=== PATIENT | female | born 1985 | race Caucasian/White ===

== ENCOUNTER → 2022-07-08 | Outpatient (CLI) | payer OTHER ==
[~2022-07-08] MED LIST: AMOX250 PO; AMOX500 PO; Azithromycin500 MG PO; BIRTH CONTROL; CEPH250A PO; CIPR500 PO; CODACE30 PO; Crutch1 EACH MISC; IBUP800 PO; NAPR500 PO; RXCODACET PO
== END | disposition home or self-care (01) ==
LOC: LAB 18:05 → LAB SHORT 18:05
DX: S29.011A Strain of muscle and tendon of front wall of thorax, initial encounter (principal); R82.81 Pyuria
CPT/HCPCS: 87086

== ENCOUNTER 2022-08-18 17:34 | Inpatient (IN) | payer OTHER ==
[~2022-08-18] VITALS: Ht 165.1 cm; Wt 68.0 kg
[2022-08-18 19:03] LABS: BASOPHILS ABSOLUTE AUTO 0.03 K/mm3 (0.00-0.23); BASOPHILS PERCENT AUTO 0 % (0-2); EOSINOPHILS PERCENT AUTO 4 % (0-6); Hematocrit 41.6 % (33.0-51.0); Hemoglobin 14.5 g/dL (11.5-16.0); IMMATURE GRAN ABSOLUTE AUTO 0.01 K/mm3 (0.00-0.10); IMMATURE GRAN PERCENT AUTO 0 % (0-1); LYMPHOCYTES ABSOLUTE AUTO 2.14 K/mm3 (0.84-5.20); LYMPHOCYTES PERCENT AUTO 30 % (21-46); MONOCYTES ABSOLUTE AUTO 0.49 K/mm3 (0.16-1.47); MONOCYTES PERCENT AUTO 7 % (4-13); Mean Corpuscular HGB 30.4 pg (26.0-34.0); Mean Corpuscular HGB Conc 34.9 g/dL (31.5-36.5); Mean Corpuscular Volume 87 fL (80-100); Mean Platelet Volume 10.1 fL (9.1-12.4); NEUTROPHILS ABSOLUTE AUTO 4.12 K/mm3 (1.96-9.15); NEUTROPHILS PERCENT AUTO 58 % (41-73); Platelet Count 259 K/mm3 (150-400); RDW Coefficient Variation 12.8 % (11.7-14.2); RDW Standard Deviation 40.8 fL (35.1-46.3); Red Blood Cell Count 4.77 M/mm3 (3.80-5.20); White Blood Cell Count 7.09 K/mm3 (4.00-11.30)
[2022-08-18 19:26] LABS: Albumin, Blood 3.9 g/dL (3.4-5.0); Bilirubin, Total 0.5 mg/dL (0.1-1.0); Calcium, Blood 9.5 mg/dL (8.5-10.1); Creatinine, Blood 0.73 mg/dL (0.40-1.00); Globulin, Blood 3.9 g/dL (2.2-4.0); Potassium, Blood 3.9 mmol/L (3.5-5.5); Total Protein, Blood 7.8 g/dL (6.4-8.2)
[2022-08-19 03:52] LABS: BASOPHILS ABSOLUTE AUTO 0.02 K/mm3 (0.00-0.23); BASOPHILS PERCENT AUTO 0 % (0-2); EOSINOPHILS ABSOLUTE AUTO 0.29 K/mm3 (0.00-0.68); EOSINOPHILS PERCENT AUTO 4 % (0-6); Hematocrit 35.7 % (33.0-51.0); Hemoglobin 12.4 g/dL (11.5-16.0); IMMATURE GRAN ABSOLUTE AUTO 0.01 K/mm3 (0.00-0.10); IMMATURE GRAN PERCENT AUTO 0 % (0-1); LYMPHOCYTES ABSOLUTE AUTO 2.52 K/mm3 (0.84-5.20); LYMPHOCYTES PERCENT AUTO 31 % (21-46); MONOCYTES ABSOLUTE AUTO 0.64 K/mm3 (0.16-1.47); MONOCYTES PERCENT AUTO 8 % (4-13); Mean Corpuscular HGB 30.8 pg (26.0-34.0); Mean Corpuscular HGB Conc 34.7 g/dL (31.5-36.5); Mean Corpuscular Volume 89 fL (80-100); Mean Platelet Volume 10.2 fL (9.1-12.4); NEUTROPHILS ABSOLUTE AUTO 4.68 K/mm3 (1.96-9.15); NEUTROPHILS PERCENT AUTO 57 % (41-73); Platelet Count 208 K/mm3 (150-400); RDW Coefficient Variation 12.9 % (11.7-14.2); RDW Standard Deviation 42.2 fL (35.1-46.3); Red Blood Cell Count 4.03 M/mm3 (3.80-5.20); White Blood Cell Count 8.16 K/mm3 (4.00-11.30)
[2022-08-19 04:11] LABS: Albumin, Blood 3.1 g/dL (3.4-5.0); Albumin/Globulin Ratio 0.9 (0.8-1.8); Bun/Creatinine Ratio 10.4 (12.0-20.0); Calcium, Blood 8.9 mg/dL (8.5-10.1); Creatinine, Blood 0.77 mg/dL (0.40-1.00); Globulin, Blood 3.3 g/dL (2.2-4.0); Potassium, Blood 3.7 mmol/L (3.5-5.5); Total Protein, Blood 6.4 g/dL (6.4-8.2)
--- NOTE | 2022-08-19 05:08 | NUR ---
SHIFT SUMMARY ADMITTED FOR ACUTE CHOLECYSTITIS. AOX4. TALKATIVE & TANGETABLE SPEECH @TIMES, HOWEVER RESPONDS APPROPRIATE. DENIES N/V. ACTIVE BT. REPORTS 5/10 TENDERNESS & PAIN TO RUQ RAIDIATING TO R SIDE, STATES THIS PAIN LEVEL IS TOLERABLE COMPARED TO 10/10 PAIN LEVEL UPON ARRIVAL TO ER. HAS BEEN NPO SINCE MIDNIGHT, DID TOLERATE WATER W/O EMESIS PRIOR TO MIDNIGHT. PLAN FOR POSS SURGERY IN AM. @BEDSIDE T/O NIGHT SINCE PT REPORTED BEING SCARED TO SLEEP ALONE. CALL LIGHT IN REACH & PT ABLE TO MAKE NEEDS KNOWN.
--- NOTE | 2022-08-19 12:29 | NUR ---
PT'S RINGS X4 GIVEN TO . History, Chart, Medications and Allergies reviewed before start of procedure.Pre-Op teaching done. Pt verbalizes understanding.
--- NOTE | 2022-08-19 12:39 | NUR ---
BELLY BUTTON RING REMOVED AND GIVEN TO .
--- NOTE | 2022-08-19 12:44 | NUR ---
TONGUE RING REMOVED AND GAVE TO .
--- NOTE | 2022-08-19 13:27 | NUR ---
08/19/22 1327 Nancy Branch NO PREOP ANTIBIOTICS PER PATIENT IS ON SCHEDULED ANTIBIOTICS.
[2022-08-19] MEDS ORDERED: HYDR1TAB94 PO (15:19)
--- NOTE | 2022-08-19 15:44 | NUR ---
PT ARRIVED FROM PACU, A&OX4, ANSWERS QUESTIONS APPROPRIATELY, DENIES PAIN/NEED FOR MED AT THIS TIME. AT BEDSIDE. S/P LAP KELI, 3 INCISIONS, WOUND GLUE DRY/INTACT.
--- NOTE | 2022-08-19 17:00 | NUR ---
DISCHARGE SUMMARY PT A&OX4, VSS/RA, YANI PO, VOIDING WELL, AMB INDEPENDENTLY IN ROOM, DENIES PAIN/NEED FOR PAIN MEDS, IV DC'D. DC INS PROVIDED TO PT AND SPOUSE. PT REP UNDERSTANDING THOSE INSTRUCTIONS INCLUDING FU WITH SURGEON, PAIN MED AT [place], [place] TO SHOWER 08/20, WHEN TO CALL THE LEFT CAIO VIA WC WITH INSPECTOR BALL POINTS TO GO HOME WITH FATHER & DAUGHTER, WITH ALL PERSONAL POSSESSIONS INCLUDING DC PACKET.
== END 2022-08-19 17:30 | disposition home or self-care (01) | DRG 419 ==
LOC: ER 17:34 → SURS 20:53 → ER 21:20 → SURS 21:20
PROVIDERS: Student in an Organized Health Care Education/Training Program; Surgery; ADMIT Surgery
PROC: BF121ZZ Fluoroscopy of Gallbladder using Low Osmolar Contrast (ICD-10-PCS; 2022-08-19)
PROC: 0FT44ZZ Resection of Gallbladder, Percutaneous Endoscopic Approach (ICD-10-PCS; principal; 2022-08-19 12:30)
DX: K80.00 Calculus of gallbladder with acute cholecystitis without obstruction (principal); Z98.890 Other specified postprocedural states
CPT/HCPCS: 36415; 74177; 74300; 80053; 83690; 84703; 85025; 88304; 96374-59; 96375; 99285-25; C1729; J1100; J1885; J2250; J2270; J2405; J2543; J2704; J3010; J7120; Q9967

== ENCOUNTER 2022-11-07 23:57 | Emergency (ER) | payer OTHER ==
[~2022-11-07] VITALS: Ht 162.6 cm; Wt 68.0 kg
[~2022-11-07 23:57] MED LIST changes: +HYDR1TAB94 PO
[2022-11-08 00:31] VITALS: BP 119/86
[2022-11-08] MEDS ORDERED: DEXILANT60 MG PO (00:33)
[2022-11-08] MEDS ORDERED: DEPAKOTE ER250 M2 PO (00:33)
== END 2022-11-08 00:39 | disposition home or self-care (01) ==
LOC: ER 23:57
DX: S63.502A Unspecified sprain of left wrist, initial encounter (principal); W01.10XA Fall on same level from slipping, tripping and stumbling with subsequent striking against unspecified object, initial encounter
CPT/HCPCS: 29125; 73110; 99283-25; L3917

== ENCOUNTER 2024-11-05 19:41 | Emergency (ER) | payer OTHER ==
[~2024-11-05] VITALS: Ht 154.9 cm; Wt 72.6 kg
[~2024-11-05 19:41] MED LIST changes: +AMOCLA875 PO; +DEPAKOTE ER250 M2 PO; +DEXILANT60 MG PO
[2024-11-05 19:59] VITALS: BP 133/100
== END 2024-11-05 21:31 | disposition home or self-care (01) ==
LOC: ER 19:41
DX: M25.561 Pain in right knee (principal); Z79.2 Long term (current) use of antibiotics; Z79.899 Other long term (current) drug therapy; Z87.891 Personal history of nicotine dependence
CPT/HCPCS: 73562-RT; 99283-25